=== PATIENT | female | born 1950 | race Two or more races ===

== ENCOUNTER 2022-06-25 12:03 | Inpatient (IN) | payer OTHER ==
[~2022-06-25] VITALS: Ht 160 cm; Wt 60.2 kg
[2022-06-25] MEDS ORDERED: dilTIAZem 25 MG/5 ML VIAL IV ONE (12:15)
[2022-06-25] MEDS ORDERED: ASPirin 81 mg TAB PO ONE (12:15)
[2022-06-25] MEDS ORDERED: dilTIAZem HCL 50 MG/10 ML VIAL IV ONE (12:46)
[2022-06-25] MEDS ORDERED: dilTIAZem 125mg/125ml BAG KIT 125 ML IV ONE ×2 (13:45→23:32)
[2022-06-25] MEDS ORDERED: DIGOXIN 0.25 MG TAB PO ONE (13:45)
[2022-06-25 13:49] LABS: Basophils # (auto) 0 10 ^3/uL (0-0.2); Eosinophils # (auto) 0 10 ^3/uL (0-0.8); Nucleated Red Blood Cells % 0.5 %; White Blood Cell 11.7 10^3/uL (4.4-10.8)
[2022-06-25 13:50] LABS: Basophils % (auto) 0.4 % (0.0-2.0); Eosinophils % (auto) 0.2 % (0.0-7.0); Hematocrit 37.7 % (36.0-46.0); Hemoglobin 11.5 g/dL (12.2-16.2); Lymphocytes # (auto) 1.1 10 ^3/uL (0.4-5.4); Lymphocytes % (auto) 9.5 % (10.0-50.0); Mean Corpuscular Hemoglobin 23.6 pg (28.0-32.0); Mean Corpuscular Hgb Conc. 30.5 g/dL (32.0-36.0); Mean Corpuscular Volume 77.5 fL (80.0-100.0); Monocytes # (auto) 1.5 10 ^3/uL (0-1.3); Monocytes % (auto) 12.6 % (0.0-12.0); Neutrophils # (auto) 9.1 10 ^3/uL (1.6-8.6); Neutrophils % (auto) 77.3 % (37.0-80.0); Red Blood Cells 4.86 10^6/uL (4.0-5.20); Red Cell Distribution Width 18.6 % (11.8-14.3)
[2022-06-25 14:13] LABS: INR 1.1 (0.9-1.15); Partial Thromboplastin Time 29.2 sec (24.6-33.4)
[2022-06-25 14:16] LABS: Calcium 8.6 mg/dL (8.5-10.1); Magnesium 2.2 mg/dL (1.6-2.6); Potassium 3.9 mmol/L (3.5-5.1)
[2022-06-25 14:22] LABS: BUN/Creatinine Ratio 24.7; Bilirubin, Total 0.9 mg/dL (0.2-1.0); Total Protein 6.5 g/dL (6.4-8.2)
[2022-06-25] MEDS ORDERED: MORPHINE SULFATE 4 MG/ML SYR/VIAL IV ONE (14:30)
[2022-06-25] MEDS ORDERED: ONDANSETRON HCL 4 MG/2 ML VIAL IV ONE (14:30)
[2022-06-25] MEDS ORDERED: NITROGLYCERIN 0.4 MG SL TAB SL PRN (16:45)
[2022-06-25] MEDS ORDERED: MORPHINE SULFATE INJ 2 MG/ml SYRG IV PRN (16:45)
[2022-06-25] MEDS ORDERED: ENOXAPARIN SOD 60 MG/0.6 ML SYRINGE SC ONE (17:15)
[2022-06-25] MEDS ORDERED: LEVE1TAB46 PO (17:35)
[2022-06-25] MEDS ORDERED: ATOR40TA52 PO (17:35)
[2022-06-25] MEDS ORDERED: hydrALAZINE HCL 20 MG/ML VL IV PRN (18:45)
[2022-06-25 18:47] LABS: Urine Bacteria FEW /hpf (None Seen); Urine Blood Negative /uL (Negative); Urine Hyaline Cast FEW /lpf (0 - 2); Urine Specific Gravity 1.022 (1.001-1.035); Urine WBC 7 /hpf (0 - 5)
[2022-06-25] MEDS ORDERED: CEFEPIME 1GM/ 50ML 50 ML IV ONE (19:00)
[2022-06-25 19:01] LABS: Alcohol, Urine < 3.0 mg/dL (0-10); Amphetamine Screen, Urine NEGATIVE (NEGATIVE); Barbiturate Scree,Urine NEGATIVE (NEGATIVE); Benzodiazephine Screen, Urine NEGATIVE (NEGATIVE); Cannabinoid Screen, Urine NEGATIVE (NEGATIVE); Cocaine Screen, Urine NEGATIVE (NEGATIVE); Opiate Scree,Urine NEGATIVE (NEGATIVE); Phencyclidine Screen, Urine NEGATIVE (NEGATIVE)
[2022-06-25 19:03] LABS: INR 1.11 (0.9-1.15)
[2022-06-25] MEDS: ENOXAPARIN SOD 40 MG/0.4 ML SYRINGE SC SCH (19:13)
[2022-06-25] MEDS ORDERED: ONDANSETRON HCL 4 MG/2 ML VIAL IV PRN (23:45)
[2022-06-25] MEDS ORDERED: dilTIAZem 125mg/125ml BAG KIT 125 ML IV SCH (23:45)
[2022-06-25] MEDS ORDERED: dilTIAZem 125mg/125ml BAG KIT 100 ML IV SCH (23:45)
[2022-06-26] MEDS: CARVEDILOL 12.5 MG TAB PO SCH ×3 (05:55→21:45)
[2022-06-26] MEDS: amLODIPine BESYLATE 5 MG TAB PO SCH ×2 (05:58→09:53)
[2022-06-26 07:00] LABS: Eosinophils # (auto) 0.1 10 ^3/uL (0-0.8); Hemoglobin 10.3 g/dL (12.2-16.2); Lymphocytes # (auto) 0.9 10 ^3/uL (0.4-5.4); Mean Corpuscular Hemoglobin 24.4 pg (28.0-32.0); Mean Corpuscular Hgb Conc. 31.3 g/dL (32.0-36.0); Mean Corpuscular Volume 78.1 fL (80.0-100.0); Monocytes # (auto) 1.4 10 ^3/uL (0-1.3); Monocytes % (auto) 14.2 % (0.0-12.0)
[2022-06-26 07:02] LABS: Basophils # (auto) 0 10 ^3/uL (0-0.2); Basophils % (auto) 0.4 % (0.0-2.0); Eosinophils % (auto) 0.8 % (0.0-7.0); Lymphocytes % (auto) 9.2 % (10.0-50.0); Neutrophils # (auto) 7.3 10 ^3/uL (1.6-8.6); Neutrophils % (auto) 75.4 % (37.0-80.0); Nucleated Red Blood Cells % 0.4 %; Red Blood Cells 4.22 10^6/uL (4.0-5.20); Red Cell Distribution Width 18.4 % (11.8-14.3); White Blood Cell 9.6 10^3/uL (4.4-10.8)
[2022-06-26 07:27] LABS: Potassium 4.1 mmol/L (3.5-5.1)
[2022-06-26 07:28] LABS: Albumin 2.8 g/dL (3.4-5.0); Calcium 8.5 mg/dL (8.5-10.1)
[2022-06-26 07:31] LABS: BUN/Creatinine Ratio 24.3; Bilirubin, Total 0.7 mg/dL (0.2-1.0); Total Protein 6.2 g/dL (6.4-8.2)
[2022-06-26] MEDS: ENOXAPARIN SOD 40 MG/0.4 ML SYRINGE SC SCH (10:15)
[2022-06-26] MEDS ORDERED: ASPirin 81 mg TAB PO ONE (10:45)
[2022-06-26] MEDS ORDERED: FUROSEMIDE 20 MG/2 ML VIAL IV ONE ×2 (10:45→16:00)
[2022-06-26] MEDS ORDERED: MET50T PO (14:54)
[2022-06-26 17:00] VITALS: BP 131/95
[2022-06-26] MEDS ORDERED: DIGOXIN 0.125 MG TAB PO ONE (19:30)
[2022-06-26 20:00] VITALS: BP 144/88
[2022-06-26 21:35] VITALS: BP 144/85
[2022-06-26] MEDS ORDERED: OXYCODONE W/ ACETAMINOPHEN 5/325MG TABLET PO PRN (23:15)
[2022-06-27 05:01] VITALS: BP 136/94
[2022-06-27 06:45] LABS: Albumin 2.5 g/dL (3.4-5.0); Calcium 7.9 mg/dL (8.5-10.1); Potassium 3.7 mmol/L (3.5-5.1)
[2022-06-27 06:49] LABS: BUN/Creatinine Ratio 24.3; Bilirubin, Total 0.5 mg/dL (0.2-1.0); Total Protein 5.8 g/dL (6.4-8.2)
[2022-06-27] MEDS ORDERED: POTA10TA32 PO (09:10)
[2022-06-27] MEDS ORDERED: DIGO1TAB48 PO (09:10)
[2022-06-27] MEDS ORDERED: FURO1TAB31 PO (09:10)
[2022-06-27 09:27] VITALS: BP 145/98
[2022-06-27] MEDS ORDERED: ENOXAPARIN SOD 30 MG/0.3 ML SYRINGE SC SCH (10:00)
[2022-06-27] MEDS ORDERED: ASPirin 81 mg TAB PO SCH (10:00)
[2022-06-27] MEDS ORDERED: FUROSEMIDE 20 MG/2 ML VIAL IV SCH (10:00)
[2022-06-27] MEDS: amLODIPine BESYLATE 5 MG TAB PO SCH (10:38)
[2022-06-27] MEDS: CARVEDILOL 12.5 MG TAB PO SCH (10:39)
[2022-06-27 12:03] VITALS: BP 155/95
[2022-06-27] MEDS ORDERED: DILT120C54 PO (12:44)
[2022-06-27] MEDS ORDERED: DIGOXIN (250MCG/ML) 2 ML AMPULE IV ONE (12:45)
[2022-06-27] MEDS ORDERED: dilTIAZem 120MG ER CAP PO ONE (12:45)
[2022-06-27 14:08] VITALS: BP 155/94
[2022-06-28] MEDS ORDERED: DIGOXIN 0.125 MG TAB PO SCH (18:00)
== END 2022-06-27 15:55 | disposition home or self-care (01) | DRG 291 ==
LOC: EDBD 12:03 → ER 12:03 → OVERFLOW 16:44 → TELE-CENTR 06-26 13:40
PROVIDERS: ADMIT Registered Nurse; ATTEND Internal Medicine
PROC: 05HC33Z Insertion of Infusion Device into Left Basilic Vein, Percutaneous Approach (ICD-10-PCS; principal; 2022-06-25)
PROC: B54NZZA Ultrasonography of Left Upper Extremity Veins, Guidance (ICD-10-PCS; 2022-06-25)
DX: I13.0 Hypertensive heart and chronic kidney disease with heart failure and stage 1 through stage 4 chronic kidney disease, or unspecified chronic kidney disease (principal); I50.43 Acute on chronic combined systolic (congestive) and diastolic (congestive) heart failure; N17.0 Acute kidney failure with tubular necrosis; D63.8 Anemia in other chronic diseases classified elsewhere; E78.5 Hyperlipidemia, unspecified; E88.09 Other disorders of plasma-protein metabolism, not elsewhere classified; G40.909 Epilepsy, unspecified, not intractable, without status epilepticus; C50.919 Malignant neoplasm of unspecified site of unspecified female breast; R74.8 Abnormal levels of other serum enzymes; R79.89 Other specified abnormal findings of blood chemistry; Z20.822 Contact with and (suspected) exposure to COVID-19; I48.91 Unspecified atrial fibrillation; N18.31 Chronic kidney disease, stage 3a; Z66 Do not resuscitate; Z85.3 Personal history of malignant neoplasm of breast; Z86.73 Personal history of transient ischemic attack (TIA), and cerebral infarction without residual deficits; Z88.0 Allergy status to penicillin; Z88.1 Allergy status to other antibiotic agents
CPT/HCPCS: 36415; 71045; 76705; 80053; 80074; 80307; 80320; 81001; 83036; 83735; 83880; 84439; 84443; 84484; 85025; 85610; 85730; 87040; 87081; 87086; 93005; 93306; 96374; 96375; G0378; J2405